=== PATIENT | male | born 1970 | race Caucasian/White ===

== ENCOUNTER 2019-10-27 17:09 | Observation (INO) | payer OTHER ==
[2019-10-27 17:30] LABS: Glucose,Whole Blood 245 mg/dL (75-99)
[2019-10-27] MEDS ORDERED: SODIUM CHLORIDE 0.9% 1,000 ML IV ONE ×2 (17:34→19:22)
--- NOTE | 2019-10-27 17:37 | ED ---
General Adult HPI - General Chief complaint: Recheck/Abnormal Lab/Rx Stated complaint: DKA Time Seen by Provider: 10/27/19 17:09 Source: patient, EMS, RN notes reviewed, old records reviewed Mode of arrival: EMS Limitations: no limitations - History of Present Illness Initial comments: This is a 49-year-old male who presents emergency Department from [facility]. Patient arrived there at [place] was diagnosed with DKA alcohol intoxication with alcohol 459. Patient also had fallen and broken his clavicle. Patient is CT of his head neck and it was negative according to the physician at [place]. Patient upon arrival he is complaining of some clavicle pain aside from that has no other complaints at this time. Patient admits that he was drinking heavily earlier. Patient denies any chest pain or palpitations or difficulty breathing. Patient denies any head or neck pain patient denies any abdominal pain. - Related Data Allergies Allergy/AdvReac Type Severity Reaction Status Date / Time No Known Allergies Allergy Verified 10/27/19 19:08 Review of Systems ROS Statement: Those systems with pertinent positive or pertinent negative responses have been documented in the HPI. ROS Other: All systems not noted in ROS Statement are negative. Past Medical History Past Medical History: Diabetes Mellitus History of Any Multi-Drug Resistant Organisms: None Reported Past Surgical History: No Surgical Hx Reported Past Alcohol Use History: Abuse, Daily General Exam - General Exam Comments Initial Comments: GENERAL: Patient is well-developed and well-nourished. Patient is nontoxic and well- hydrated and is in mild distress. ENT: Neck is soft and supple. No significant lymphadenopathy is noted. Oropharynx is clear. Moist mucous membranes. Neck has full range of motion without eliciting any pain. EYES: The sclera were anicteric and conjunctiva were pink and moist. Extraocular movements were intact and pupils were equal round and reactive to light. Eyelids were unremarkable. PULMONARY: Unlabored respirations. Good breath sounds bilaterally. No audible rales rhonchi or wheezing was noted. CARDIOVASCULAR: There is a regular rate and rhythm without any murmurs gallops or rubs. ABDOMEN: Soft and nontender with normal bowel sounds. SKIN: Patient has some ecchymosis above the left clavicle. NEUROLOGIC: Patient is alert and oriented x3. Cranial nerves II through XII are grossly intact. Motor and sensory are also intact. Normal speech, volume and content. Symmetrical smile. MUSCULOSKELETAL: Normal extremities with adequate strength and full range of motion. Patient has a tender left clavicle LYMPHATICS: No significant lymphadenopathy is noted PSYCHIATRIC: Normal psychiatric evaluation. Limitations: no limitations Course Vital Signs 10/27/19 10/27/19 17:11 18:27 Temperature 97.8 F Pulse Rate 68 76 Respiratory 16 16 Rate Blood Pressure 119/81 144/86 O2 Sat by Pulse 100 100 Oximetry Medical Decision Making - Lab Data Result diagrams: 10/27/19 17:48 10/27/19 17:48 Lab Results 10/27/19 10/27/19 10/27/19 Range/Units 17:19 17:48 17:48 WBC 8.5 (3.8-10.6) k/uL RBC 3.74 L (4.30-5.90) m/uL Hgb 11.9 L (13.0-17.5) gm/dL Hct 36.5 L (39.0-53.0) % MCV 97.8 (80.0-100.0) fL MCH 31.9 (25.0-35.0) pg MCHC 32.6 (31.0-37.0) g/dL RDW 14.3 (11.5-15.5) % Plt Count 142 L (150-450) k/uL Neutrophils % 66 % Lymphocytes % 24 % Monocytes % 7 % Eosinophils % 0 % Basophils % 0 % Neutrophils # 5.6 (1.3-7.7) k/uL Lymphocytes # 2.0 (1.0-4.8) k/uL Monocytes # 0.6 (0-1.0) k/uL Eosinophils # 0.0 (0-0.7) k/uL Basophils # 0.0 (0-0.2) k/uL Sodium 134 L (137-145) mmol/L Potassium 4.9 (3.5-5.1) mmol/L Chloride 94 L (98-107) mmol/L Carbon Dioxide 20 L (22-30) mmol/L Anion Gap 20 mmol/L BUN 7 L (9-20) mg/dL Creatinine 0.25 L (0.66-1.25) mg/dL Est GFR (CKD-EPI)AfAm >90 (>60 ml/min/1.73 sqM) Est GFR (CKD-EPI)NonAf >90 (>60 ml/min/1.73 sqM) Glucose 214 H (74-99) mg/dL POC Glucose (mg/dL) 245 H (75-99) mg/dL POC Glu Bridge Attacher ID Jolie Aragon Plasma Lactic Acid Miguelito (0.7-2.0) mmol/L Calcium 8.0 L (8.4-10.2) mg/dL Total Bilirubin 1.7 H (0.2-1.3) mg/dL AST 108 H (17-59) U/L ALT 29 (4-49) U/L Alkaline Phosphatase 304 H (38-126) U/L Total Protein 6.8 (6.3-8.2) g/dL Albumin 3.7 (3.5-5.0) g/dL Serum Alcohol 236 H* mg/dL Acetone, Qual Negative (Negative) 10/27/19 10/27/19 Range/Units 17:48 19:03 WBC (3.8-10.6) k/uL RBC (4.30-5.90) m/uL Hgb (13.0-17.5) gm/dL Hct (39.0-53.0) % MCV (80.0-100.0) fL MCH (25.0-35.0) pg MCHC (31.0-37.0) g/dL RDW (11.5-15.5) % Plt Count (150-450) k/uL Neutrophils % % Lymphocytes % % Monocytes % % Eosinophils % % Basophils % % Neutrophils # (1.3-7.7) k/uL Lymphocytes # (1.0-4.8) k/uL Monocytes # (0-1.0) k/uL Eosinophils # (0-0.7) k/uL Basophils # (0-0.2) k/uL Sodium (137-145) mmol/L Potassium (3.5-5.1) mmol/L Chloride (98-107) mmol/L Carbon Dioxide (22-30) mmol/L Anion Gap mmol/L BUN (9-20) mg/dL Creatinine (0.66-1.25) mg/dL Est GFR (CKD-EPI)AfAm (>60 ml/min/1.73 sqM) Est GFR (CKD-EPI)NonAf (>60 ml/min/1.73 sqM) Glucose (74-99) mg/dL POC Glucose (mg/dL) 409 H (75-99) mg/dL POC Glu Bridge Attacher ID Jolie Aragon Plasma Lactic Acid Miguelito 4.2 H* (0.7-2.0) mmol/L Calcium (8.4-10.2) mg/dL Total Bilirubin (0.2-1.3) mg/dL AST (17-59) U/L ALT (4-49) U/L Alkaline Phosphatase (38-126) U/L Total Protein (6.3-8.2) g/dL Albumin (3.5-5.0) g/dL Serum Alcohol mg/dL Acetone, Qual (Negative) Disposition Clinical Impression: Alcohol intoxication, Lactic acidosis, Clavicle fracture Disposition: ADMITTED IP TO THIS HOSP Referrals: None,Stated [Primary Care Provider] - 1-2 days Time of Disposition: 19:06
[2019-10-27 18:10] LABS: Basophils % (A) 0 %; Eosinophils % (A) 0 %; HCT 36.5 % (39.0-53.0); HGB 11.9 gm/dL (13.0-17.5); Lymphocytes % (A) 24 %; MCH 31.9 pg (25.0-35.0); MCHC 32.6 g/dL (31.0-37.0); MCV 97.8 fL (80.0-100.0); Mean Platelet Volume 8.7; Monocytes # (A) 0.6 k/uL (0-1.0); Monocytes % (A) 7 %; Neutrophils # (A) 5.6 k/uL (1.3-7.7); Neutrophils % (A) 66 %; Platelet Count 142 k/uL (150-450); RBC 3.74 m/uL (4.30-5.90); RDW 14.3 % (11.5-15.5); WBC 8.5 k/uL (3.8-10.6)
[2019-10-27 18:21] LABS: ALT 29 U/L (4-49); AST 108 U/L (17-59); African American GFR (CKD) >90 (>60 ml/min/1.73 sqM); Albumin 3.7 g/dL (3.5-5.0); Alkaline Phosphatase 304 U/L (38-126); Anion Gap 20 mmol/L; Blood Urea Nitrogen 7 mg/dL (9-20); Carbon Dioxide 20 mmol/L (22-30); Chloride 94 mmol/L (98-107); Glucose 214 mg/dL (74-99); Non-African American GFR(CKD) >90 (>60 ml/min/1.73 sqM); Sodium 134 mmol/L (137-145); Total Bilirubin 1.7 mg/dL (0.2-1.3); Total Protein 6.8 g/dL (6.3-8.2)
[2019-10-27 18:29] LABS: Alcohol 236 mg/dL; Potassium 4.9 mmol/L (3.5-5.1)
[2019-10-27 19:11] LABS: Glucose,Whole Blood 409 mg/dL (75-99)
[2019-10-27] MEDS ORDERED: THIAMINE 100 MG/ML 2 ML VIAL IM STA (19:30)
[2019-10-27] MEDS ORDERED: LORazepam 2 MG/ML INJ IV PRN ×2 (19:30)
[2019-10-27] MEDS: LORazepam 2 MG/ML INJ IV PRN (19:58)
[2019-10-27 20:31] LABS: Glucose,Whole Blood 309 mg/dL (75-99)
[2019-10-27] MEDS ORDERED: ONDANSETRON 4 MG/2 ML VIAL IVP PRN (21:30)
[2019-10-27] MEDS ORDERED: METOCLOPRAMIDE 5 MG/ML 2 ML VIAL IVP PRN (21:34)
[2019-10-27] MEDS ORDERED: SODIUM CHLORIDE 0.9% 2,000 ML IV ONE (22:20)
--- NOTE | 2019-10-27 22:29 | P.HPIM ---
History of Present Illness H&P Date: 10/27/19 Chief Complaint: alcohol intoxication and hyperglycemia 49 year old male with DM , and alcohol abuse, history of stroke with residual left sided weakness patient transferred to our facility from [facility] due to alcohol intoxication, hyperglycemia, and clavicle fracture. patient interviewed in the ER, he is intoxicated, but alert, reports that he drinks at least a fifth every day , denies any history of alcohol withdrawal seizures, he reports falling accidentally but does not recall the exact circumstances of the accident, however, denies passing out or head injury. at [facility] , CT of head and neck reported to be negative for any acute abnormalities. he mentions falling on his left shouler, he was found to have left clavicle fracture, which currently causing a lot of pain . he was also found to have elevated blood sugar. he claims to be compliant with his medications. he adds, that he is currently living with a friend while looking for a place. patient otherwise mark any other medical problems. he denies any complaints like GI bleeding, chest pain or trouble breathing. In our ED , he had a fresh set of blood work that showed mild anemia, lactic acidosis, negative to acetone, elevated alcohol level, and acute alcoholic hep atitis. Review of Systems Pertinent positives as noted in HPI. All other systems were reviewed and are negative Past Medical History Past Medical History: CVA/TIA, Diabetes Mellitus History of Any Multi-Drug Resistant Organisms: None Reported Past Surgical History: No Surgical Hx Reported Past Alcohol Use History: Abuse, Daily - Past Family History family Family Medical History: Unable to Obtain Medications and Allergies Allergies Allergy/AdvReac Type Severity Reaction Status Date / Time ondansetron [From Zofran] Allergy Rash/Hives Verified 10/27/19 19:52 Physical Exam Vitals: Vital Signs Temp Pulse Resp BP Pulse Ox 10/27/19 18:27 76 16 144/86 100 10/27/19 17:11 97.8 F 68 16 119/81 100 Intake and Output 10/27/19 10/27/19 10/27/19 06:59 14:59 22:59 Other: Weight 60.781 kg Constitutional: No acute distress, intoxicated, but alert Eyes: Anicteric sclerae, moist conjunctiva, Pupils equal round reactive to light ENMT: NC/AT Oropharynx clear, no erythema, or exudates Neck: Supple, FROM, no masses, or JVD No carotid bruits No thyromegaly Lungs: Clear to auscultation Clear to percussion Normal respiratory effort, no accessory muscle use Cardiovascular: Heart regular in rate and rhythm, No murmurs, gallops, or rubs No peripheral edema Abdominal: Soft Nontender, no guarding, rebound or rigidity Abdomen moving with respiration Normoactive bowel sounds No hepatomegaly, No splenomegaly No palpable mass No abdominal wall hernia noted Skin: Normal temperature, tone, texture, turgor No induration No subcutaneous nodules No rash, lesions No ulcers Extremities: No digital cyanosis No clubbing Pedal pulses intact and symmetrical Radial pulses intact and symmetrical No calf tenderness Psychiatric: intoxicat BUT ALERT Neuro Muscles Strength 4/5 in all 4 extremities Sensation to light touch grossly present throughout Cranial nerves II-XII grossly intact No focal sensory deficits Lymphatics: no palpable cervical or supraclavicular , or inguinal lymph nodes Results CBC & Chem 7: 10/27/19 17:48 10/27/19 17:48 Labs: Abnormal Lab Results - Last 24 Hours (Table) 10/27/19 10/27/19 10/27/19 Range/Units 17:19 17:48 17:48 RBC 3.74 L (4.30-5.90) m/uL Hgb 11.9 L (13.0-17.5) gm/dL Hct 36.5 L (39.0-53.0) % Plt Count 142 L (150-450) k/uL Sodium 134 L (137-145) mmol/L Chloride 94 L (98-107) mmol/L Carbon Dioxide 20 L (22-30) mmol/L BUN 7 L (9-20) mg/dL Creatinine 0.25 L (0.66-1.25) mg/dL Glucose 214 H (74-99) mg/dL POC Glucose (mg/dL) 245 H (75-99) mg/dL Plasma Lactic Acid Miguelito (0.7-2.0) mmol/L Calcium 8.0 L (8.4-10.2) mg/dL Total Bilirubin 1.7 H (0.2-1.3) mg/dL AST 108 H (17-59) U/L Alkaline Phosphatase 304 H (38-126) U/L Serum Alcohol 236 H* mg/dL 10/27/19 10/27/19 Range/Units 17:48 19:03 RBC (4.30-5.90) m/uL Hgb (13.0-17.5) gm/dL Hct (39.0-53.0) % Plt Count (150-450) k/uL Sodium (137-145) mmol/L Chloride (98-107) mmol/L Carbon Dioxide (22-30) mmol/L BUN (9-20) mg/dL Creatinine (0.66-1.25) mg/dL Glucose (74-99) mg/dL POC Glucose (mg/dL) 409 H (75-99) mg/dL Plasma Lactic Acid Miguelito 4.2 H* (0.7-2.0) mmol/L Calcium (8.4-10.2) mg/dL Total Bilirubin (0.2-1.3) mg/dL AST (17-59) U/L Alkaline Phosphatase (38-126) U/L Serum Alcohol mg/dL Assessment and Plan Assessment: acute moderate to sever alcohol intoxication and use disorder lactic acidosis hyperglycemia acute alcoholic hepatitis history of stroke fracture clavicle aggressive IV FLUID HYDRATION NO IDEntified source of infection at this time follow up lactic acid follow up liver enzymes insulin sliding scale and levemir benzo for potential alcohol withdrawal per CIWA SCALE thiamin supportive care fall precautions seizure precautions orthopedic evaluation pain control arm sling DVT PPX HEPARIN SC TID CODE STATUS:full code Anticipated length of stay more than [address]: home A total of 75 minutes was spent on the care of this complex patient more than 50% of the time was spent in counseling and care coordination.
[2019-10-27] MEDS: INSULIN DETEMIR (LEVEMIR) 100 UNIT/ML SYR SQ SCH (22:47)
[2019-10-27] MEDS: KETOROLAC 30 MG/ML 1 ML VIAL IVP SCH (23:05)
[2019-10-27] MEDS: HEPARIN SODIUM,PORCINE 5,000 UNIT/ML 1 ML VIAL SQ SCH (23:06)
[2019-10-27] MEDS ORDERED: HYDROmorphone 0.5 MG/0.5 ML SYRINGE IVP PRN (23:30)
[2019-10-28] MEDS ORDERED: HYDROcodone/APAP 5-325MG 1 EACH TAB PO STA (00:43)
[2019-10-28] MEDS: HYDROmorphone 0.5 MG/0.5 ML SYRINGE IVP PRN ×6 (00:53→21:43)
[2019-10-28] MEDS: LORazepam 2 MG/ML INJ IV PRN ×3 (02:35→20:07)
[2019-10-28 04:07] LABS: African American GFR (CKD) >90 (>60 ml/min/1.73 sqM); Anion Gap 9 mmol/L; Blood Urea Nitrogen 6 mg/dL (9-20); Calcium 7.4 mg/dL (8.4-10.2); Carbon Dioxide 25 mmol/L (22-30); Chloride 95 mmol/L (98-107); Glucose 116 mg/dL (74-99); Non-African American GFR(CKD) >90 (>60 ml/min/1.73 sqM); Potassium 3.3 mmol/L (3.5-5.1); Sodium 129 mmol/L (137-145)
[2019-10-28] MEDS ORDERED: SODIUM CHLORIDE 0.9% 1,000 ML IV ONE (04:13)
[2019-10-28 04:27] LABS: Basophils % (A) 0 %; Eosinophils # (A) 0.1 k/uL (0-0.7); Eosinophils % (A) 1 %; HCT 29.2 % (39.0-53.0); HGB 10.2 gm/dL (13.0-17.5); Lymphocytes # (A) 1.5 k/uL (1.0-4.8); Lymphocytes % (A) 25 %; MCH 33.5 pg (25.0-35.0); MCHC 34.8 g/dL (31.0-37.0); MCV 96.4 fL (80.0-100.0); Mean Platelet Volume 8.4; Monocytes # (A) 0.4 k/uL (0-1.0); Monocytes % (A) 6 %; Neutrophils % (A) 66 %; RBC 3.03 m/uL (4.30-5.90); WBC 6.1 k/uL (3.8-10.6)
[2019-10-28 04:42] LABS: Platelet Count 89 k/uL (150-450)
[2019-10-28] MEDS: KETOROLAC 30 MG/ML 1 ML VIAL IVP SCH ×3 (05:33→18:10)
[2019-10-28] MEDS: THIAMINE 100 MG TAB PO SCH ×2 (07:19→16:57)
[2019-10-28] MEDS: HEPARIN SODIUM,PORCINE 5,000 UNIT/ML 1 ML VIAL SQ SCH (07:19)
[2019-10-28 07:20] LABS: Glucose,Whole Blood 82 mg/dL (75-99)
[2019-10-28] MEDS: INSULIN ASPART (NovoLOG) 100 UNIT/ML VIAL SQ SCH ×4 (07:38→21:18)
--- NOTE | 2019-10-28 09:32 | P.CNOR ---
History of Present Illness - [facility] Consult date: 10/28/19 Consult reason: fracture History of present illness: Patient is a 49-year-old male who was transferred to our hospital with regards to her diabetic ketoacidosis, severe alcohol intoxication medication and recent fall resulting in a left clavicle fracture. Patient was evaluated on the medical floor today, he's resting in his hospital bed. Patient seems intoxicated still at this time. He admits to falling in the last day or 2 on of the left side injuring the shoulder. He denies any previous surgery involving that extremity. Patient has known alcohol abuse disorder. He has no other orthopedic complaints at this time. Review of Systems Constitutional: Reports as per [facility] Past Medical History Past Medical History: CVA/TIA, Diabetes Mellitus History of Any Multi-Drug Resistant Organisms: None Reported Past Surgical History: No Surgical Hx Reported Past Anesthesia/Blood Transfusion Reactions: No Reported Reaction Past Alcohol Use History: Abuse, Daily - Past Family History family Family Medical History: Unable to Obtain Medications and Allergies Allergies Allergy/AdvReac Type Severity Reaction Status Date / Time ondansetron [From Zofran] Allergy Rash/Hives Verified 10/27/19 19:52 Physical Examination Left upper extremity: No open lesions or sores are visualized, there is some ecchymosis on the lateral posterior aspect of the shoulder Tenderness with palpation along the distal clavicle Range of motion of shoulder was not assessed due to pain Range of motion of the elbow, hand and wrist are intact, no significant strength defect appreciated Sensory exam to light touch throughout the extremity is intact, radial pulses 2+ Results - Labs Labs: Abnormal Lab Results - Last 24 Hours (Table) 10/27/19 10/27/19 10/27/19 Range/Units 17:19 17:48 17:48 RBC 3.74 L (4.30-5.90) m/uL Hgb 11.9 L (13.0-17.5) gm/dL Hct 36.5 L (39.0-53.0) % Plt Count 142 L (150-450) k/uL Sodium 134 L (137-145) mmol/L Potassium (3.5-5.1) mmol/L Chloride 94 L (98-107) mmol/L Carbon Dioxide 20 L (22-30) mmol/L BUN 7 L (9-20) mg/dL Creatinine 0.25 L (0.66-1.25) mg/dL Glucose 214 H (74-99) mg/dL POC Glucose (mg/dL) 245 H (75-99) mg/dL Plasma Lactic Acid Miguelito (0.7-2.0) mmol/L Calcium 8.0 L (8.4-10.2) mg/dL Total Bilirubin 1.7 H (0.2-1.3) mg/dL AST 108 H (17-59) U/L Alkaline Phosphatase 304 H (38-126) U/L Serum Alcohol 236 H* mg/dL 10/27/19 10/27/19 10/27/19 Range/Units 17:48 19:03 20:29 RBC (4.30-5.90) m/uL Hgb (13.0-17.5) gm/dL Hct (39.0-53.0) % Plt Count (150-450) k/uL Sodium (137-145) mmol/L Potassium (3.5-5.1) mmol/L Chloride (98-107) mmol/L Carbon Dioxide (22-30) mmol/L BUN (9-20) mg/dL Creatinine (0.66-1.25) mg/dL Glucose (74-99) mg/dL POC Glucose (mg/dL) 409 H 309 H (75-99) mg/dL Plasma Lactic Acid Miguelito 4.2 H* (0.7-2.0) mmol/L Calcium (8.4-10.2) mg/dL Total Bilirubin (0.2-1.3) mg/dL AST (17-59) U/L Alkaline Phosphatase (38-126) U/L Serum Alcohol mg/dL 10/27/19 10/28/19 10/28/19 Range/Units 21:00 00:11 03:29 RBC 3.03 L (4.30-5.90) m/uL Hgb 10.2 L (13.0-17.5) gm/dL Hct 29.2 L (39.0-53.0) % Plt Count 89 L (150-450) k/uL Sodium (137-145) mmol/L Potassium (3.5-5.1) mmol/L Chloride (98-107) mmol/L Carbon Dioxide (22-30) mmol/L BUN (9-20) mg/dL Creatinine (0.66-1.25) mg/dL Glucose (74-99) mg/dL POC Glucose (mg/dL) (75-99) mg/dL Plasma Lactic Acid Miguelito 4.8 H* 2.6 H* (0.7-2.0) mmol/L Calcium (8.4-10.2) mg/dL Total Bilirubin (0.2-1.3) mg/dL AST (17-59) U/L Alkaline Phosphatase (38-126) U/L Serum Alcohol mg/dL 10/28/19 Range/Units 03:29 RBC (4.30-5.90) m/uL Hgb (13.0-17.5) gm/dL Hct (39.0-53.0) % Plt Count (150-450) k/uL Sodium 129 L (137-145) mmol/L Potassium 3.3 L (3.5-5.1) mmol/L Chloride 95 L (98-107) mmol/L Carbon Dioxide (22-30) mmol/L BUN 6 L (9-20) mg/dL Creatinine 0.20 L (0.66-1.25) mg/dL Glucose 116 H (74-99) mg/dL POC Glucose (mg/dL) (75-99) mg/dL Plasma Lactic Acid Miguelito (0.7-2.0) mmol/L Calcium 7.4 L (8.4-10.2) mg/dL Total Bilirubin (0.2-1.3) mg/dL AST (17-59) U/L Alkaline Phosphatase (38-126) U/L Serum Alcohol mg/dL H & H 10/27/19 10/28/19 Range/Units 17:48 03:29 Hgb 11.9 L 10.2 L (13.0-17.5) gm/dL Hct 36.5 L 29.2 L (39.0-53.0) % Result Diagrams: 10/28/19 03:29 10/28/19 03:29 - Diagnostic results Shoulder x-ray: report reviewed, image reviewed (X-rays demonstrate minimally displaced left distal clavicle fracture, No other osseous abnormality is appreciated) Assessment and Plan Assessment: Minimally displaced left distal clavicle fracture Status post recent fall Other medical comorbidities Plan: I was able to discuss the case, including with physical exam findings and imaging studies my attending Dr. Lam. No orthopedic surgical intervention recommended at this time. Conservative management to include icing of the shoulder, use of an arm sling at all times Recommend [id number] Tylenol/Motrin as needed Activity level prescription as discussed for the left arm Other medical specialty recommendations GI and DVT prophylaxis per primary medical service Plan for follow-up in the outpatient setting with Dr. Lam next 2-3 weeks fracture evaluation Thank you for this consult, we'll be available for any further questions Time with Patient: Less than 30
[2019-10-28] MEDS: POTASSIUM CHLORIDE ER 20 MEQ TAB.ER PO SCH ×2 (10:29→11:58)
[2019-10-28 11:42] LABS: Glucose,Whole Blood 172 mg/dL (75-99)
--- NOTE | 2019-10-28 14:53 | P.PN ---
Subjective Progress Note Date: 10/28/19 The patient is a 49-year-old male with a PMH of type II DM, EtOH abuse, history of CVA with residual left-sided weakness who was transferred to the ED from [facility] for acute alcohol intoxication with hyperglycemia and a left clavicular fracture. The patient had reported drinking a fifth of vodka every day and had reported falling on his left shoulder 2 days ago. Imaging performed at [facility] had revealed a CT head and cervical spine to be unremarkable with a x-ray showing a left clavicular fracture. The patient was admitted for alcohol intoxication and fracture. Orthopedic surgery evaluated the patient and recommended no surgical intervention at this time with conservative management only. Reported improvement in his pain, currently at a 4 out of 10. Patient was seen and evaluated at the bedside on 10/27. Reported feeling shaky though denied any additional complaints. Right chest pain, shortness of breath, fever, chills, or cough. Objective - Vital Signs Vital signs: Vital Signs Temp 98.6 F 10/28/19 07:00 Pulse 116 H 10/28/19 08:34 Resp 19 10/28/19 07:00 BP 121/62 10/28/19 07:00 Pulse Ox 91 L 10/28/19 07:00 Intake & Output 10/27/19 10/28/19 10/28/19 18:59 06:59 18:59 Output Total 1000 1200 Balance -1000 -1200 Weight 60.781 kg 60.781 kg Output: Urine 1000 1200 Other: # Voids 1 - Exam General: Disheveled male, somewhat shaky, appears stated age, normal weight HEENT: NC/AT, anicteric sclerae, moist conjunctiva, no lid-lag, PERRLA Cardiovascular: S1/S2 wnl, no murmurs, rubs, or gallops Lungs: Clear to auscultation, normal respiratory effort, no accessory muscle use Abdominal: Soft, non-tender, non-distended, no guarding, rebound, or rigidity Skin: Warm, dry Extremities: No edema or contractures Psychiatric: Alert and oriented to person, place and time, appropriate affect Neuro: CN II-XII grossly intact, Strength 4/5 in all 4 extremities, Speech inta ct, Sensation to light touch grossly intact throughout, mild outstretched hand tremor some fine tongue fasciculations - Labs CBC & Chem 7: 10/28/19 03:29 10/28/19 03:29 Labs: Abnormal Lab Results - Last 24 Hours (Table) 10/27/19 10/27/19 10/27/19 Range/Units 17:19 17:48 17:48 RBC 3.74 L (4.30-5.90) m/uL Hgb 11.9 L (13.0-17.5) gm/dL Hct 36.5 L (39.0-53.0) % Plt Count 142 L (150-450) k/uL Sodium 134 L (137-145) mmol/L Potassium (3.5-5.1) mmol/L Chloride 94 L (98-107) mmol/L Carbon Dioxide 20 L (22-30) mmol/L BUN 7 L (9-20) mg/dL Creatinine 0.25 L (0.66-1.25) mg/dL Glucose 214 H (74-99) mg/dL POC Glucose (mg/dL) 245 H (75-99) mg/dL Plasma Lactic Acid Miguelito (0.7-2.0) mmol/L Calcium 8.0 L (8.4-10.2) mg/dL Total Bilirubin 1.7 H (0.2-1.3) mg/dL AST 108 H (17-59) U/L Alkaline Phosphatase 304 H (38-126) U/L Serum Alcohol 236 H* mg/dL 10/27/19 10/27/19 10/27/19 Range/Units 17:48 19:03 20:29 RBC (4.30-5.90) m/uL Hgb (13.0-17.5) gm/dL Hct (39.0-53.0) % Plt Count (150-450) k/uL Sodium (137-145) mmol/L Potassium (3.5-5.1) mmol/L Chloride (98-107) mmol/L Carbon Dioxide (22-30) mmol/L BUN (9-20) mg/dL Creatinine (0.66-1.25) mg/dL Glucose (74-99) mg/dL POC Glucose (mg/dL) 409 H 309 H (75-99) mg/dL Plasma Lactic Acid Miguelito 4.2 H* (0.7-2.0) mmol/L Calcium (8.4-10.2) mg/dL Total Bilirubin (0.2-1.3) mg/dL AST (17-59) U/L Alkaline Phosphatase (38-126) U/L Serum Alcohol mg/dL 10/27/19 10/28/19 10/28/19 Range/Units 21:00 00:11 03:29 RBC 3.03 L (4.30-5.90) m/uL Hgb 10.2 L (13.0-17.5) gm/dL Hct 29.2 L (39.0-53.0) % Plt Count 89 L (150-450) k/uL Sodium (137-145) mmol/L Potassium (3.5-5.1) mmol/L Chloride (98-107) mmol/L Carbon Dioxide (22-30) mmol/L BUN (9-20) mg/dL Creatinine (0.66-1.25) mg/dL Glucose (74-99) mg/dL POC Glucose (mg/dL) (75-99) mg/dL Plasma Lactic Acid Miguelito 4.8 H* 2.6 H* (0.7-2.0) mmol/L Calcium (8.4-10.2) mg/dL Total Bilirubin (0.2-1.3) mg/dL AST (17-59) U/L Alkaline Phosphatase (38-126) U/L Serum Alcohol mg/dL 10/28/19 10/28/19 Range/Units 03:29 11:40 RBC (4.30-5.90) m/uL Hgb (13.0-17.5) gm/dL Hct (39.0-53.0) % Plt Count (150-450) k/uL Sodium 129 L (137-145) mmol/L Potassium 3.3 L (3.5-5.1) mmol/L Chloride 95 L (98-107) mmol/L Carbon Dioxide (22-30) mmol/L BUN 6 L (9-20) mg/dL Creatinine 0.20 L (0.66-1.25) mg/dL Glucose 116 H (74-99) mg/dL POC Glucose (mg/dL) 172 H (75-99) mg/dL Plasma Lactic Acid Miguelito (0.7-2.0) mmol/L Calcium 7.4 L (8.4-10.2) mg/dL Total Bilirubin (0.2-1.3) mg/dL AST (17-59) U/L Alkaline Phosphatase (38-126) U/L Serum Alcohol mg/dL Assessment and Plan Plan: Alcohol intoxication with impending withdrawal -Continue with CIWA protocol -Continue thiamine, folic acid, multivitamin -Fall, aspiration, seizure precautions -Continue with IV fluids -Monitor electrolytes and replace accordingly Lactic acidosis, resolved Clavicular fracture -As per orthopedic surgery -Pain management -Conservative management Hypokalemia -Replace and monitor Type II DM with hyperglycemia -Check A1c -Lispro insulin sliding scale blood glucose monitoring Hypochloremic hyponatremia -Likely secondary to poor oral intake in setting of EtOH abuse -Continue with IV fluids and monitor CBC Thrombocytopenia -Likely due to EtOH abuse -Monitor for now DVT prophylaxis -IPCDs Discussed with: Patient Anticipated discharge date: 1-2 day
[2019-10-28] MEDS ORDERED: POTASSIUM CHLORIDE ER 20 MEQ TAB.ER PO STA (14:54)
[2019-10-28] MEDS ORDERED: traMADol 50 MG TAB PO PRN (14:55)
[2019-10-28 16:49] LABS: Glucose,Whole Blood 129 mg/dL (75-99)
[2019-10-28] MEDS: HYDROcodone/APAP 7.5-325MG 1 EACH TAB PO PRN (19:22)
[2019-10-28 21:16] LABS: Glucose,Whole Blood 110 mg/dL (75-99)
[2019-10-29 00:21] LABS: Glucose,Whole Blood 105 mg/dL (75-99)
[2019-10-29] MEDS: INSULIN DETEMIR (LEVEMIR) 100 UNIT/ML SYR SQ SCH ×2 (00:35→21:14)
[2019-10-29] MEDS: KETOROLAC 30 MG/ML 1 ML VIAL IVP SCH ×5 (01:01→23:59)
[2019-10-29] MEDS: HYDROmorphone 0.5 MG/0.5 ML SYRINGE IVP PRN ×2 (04:28→07:33)
[2019-10-29 06:55] LABS: Glucose,Whole Blood 165 mg/dL (75-99)
[2019-10-29] MEDS: FOLIC ACID 1 MG TAB PO SCH (07:32)
[2019-10-29] MEDS: INSULIN ASPART (NovoLOG) 100 UNIT/ML VIAL SQ SCH ×4 (07:32→21:15)
[2019-10-29] MEDS: HYDROcodone/APAP 7.5-325MG 1 EACH TAB PO PRN ×3 (07:32→19:27)
[2019-10-29] MEDS: MULTIVITAMINS, THERA 1 EACH TAB PO SCH (07:32)
[2019-10-29] MEDS: THIAMINE 100 MG TAB PO SCH ×2 (07:32→17:24)
[2019-10-29 08:00] LABS: HCT 37.2 % (39.0-53.0); MCHC 32.3 g/dL (31.0-37.0); MCV 99.2 fL (80.0-100.0); Mean Platelet Volume 9.6; RBC 3.75 m/uL (4.30-5.90); RDW 13.8 % (11.5-15.5); WBC 7.2 k/uL (3.8-10.6)
[2019-10-29 08:01] LABS: Platelet Count 75 k/uL (150-450)
[2019-10-29 08:08] LABS: African American GFR (CKD) >90 (>60 ml/min/1.73 sqM); Anion Gap 18 mmol/L; Blood Urea Nitrogen 4 mg/dL (9-20); Calcium 8.3 mg/dL (8.4-10.2); Carbon Dioxide 19 mmol/L (22-30); Chloride 91 mmol/L (98-107); Glucose 136 mg/dL (74-99); Non-African American GFR(CKD) >90 (>60 ml/min/1.73 sqM); Potassium 4.5 mmol/L (3.5-5.1); Sodium 128 mmol/L (137-145)
[2019-10-29] MEDS: MORPHINE SULFATE 2 MG/ML SYRINGE IVP PRN ×4 (09:56→22:11)
[2019-10-29] MEDS: MAGNESIUM SULFATE-D5W PMX 1 GM in DEXTROSE/WATER 1 100ML.BAG IVPB SCH ×3 (09:57→12:05)
[2019-10-29] MEDS: LORazepam 2 MG/ML INJ IV PRN (11:21)
[2019-10-29 11:29] LABS: Glucose,Whole Blood 245 mg/dL (75-99)
[2019-10-29 11:38] LABS: Hemoglobin A1C 9.5 % (4.0-6.0)
--- NOTE | 2019-10-29 13:51 | P.PN ---
Subjective Progress Note Date: 10/29/19 The patient is a 49-year-old male with a PMH of type II DM, EtOH abuse, history of CVA with residual left-sided weakness who was transferred to the ED from [facility] for acute alcohol intoxication with hyperglycemia and a left clavicular fracture. The patient had reported drinking a fifth of vodka every day and had reported falling on his left shoulder 2 days ago. Imaging performed at [facility] had revealed a CT head and cervical spine to be unremarkable with a x-ray showing a left clavicular fracture. The patient was admitted for alcohol intoxication and fracture. Orthopedic surgery evaluated the patient and recommended no surgical intervention at this time with conservative management only. Patient was seen and evaluated at the bedside on 10/28. He reported continued significant left shoulder pain, currently 8 out of 10. He also reported feeling shaky and weak. Denied any additional complaints. Denied fever, chills, chest pain, shortness of breath, nausea, vomiting. Objective - Vital Signs Vital signs: Vital Signs Temp 99.2 F 10/29/19 07:00 Pulse 109 H 10/29/19 07:00 Resp 19 10/29/19 07:00 BP 121/84 10/29/19 07:00 Pulse Ox 95 10/29/19 07:00 Intake & Output 10/28/19 10/29/19 10/29/19 18:59 06:59 18:59 Output Total 2800 1900 Balance -2800 -1900 Output: Urine 2800 1900 Other: Voiding Method Urinal Diaper - Exam General: Disheveled male, mildly tremulous, appears stated age, normal weight HEENT: NC/AT, anicteric sclerae, moist conjunctiva, no lid-lag, PERRLA Cardiovascular: S1/S2 wnl, no murmurs, rubs, or gallops Lungs: Clear to auscultation, normal respiratory effort, no accessory muscle use Abdominal: Soft, non-tender, non-distended, no guarding, rebound, or rigidity Skin: Warm, dry Extremities: No edema or contractures Psychiatric: Alert and oriented to person, place and time, appropriate affect Neuro: CN II-XII grossly intact, Strength 4/5 in all 4 extremities, Speech intact, Sensation to light touch grossly intact throughout, mild outstretched hand tremor some fine tongue fasciculations - Labs CBC & Chem 7: 10/29/19 06:36 10/29/19 06:36 Labs: Abnormal Lab Results - Last 24 Hours (Table) 10/28/19 10/28/19 10/28/19 Range/Units 03:29 16:46 21:15 RBC (4.30-5.90) m/uL Hgb (13.0-17.5) gm/dL Hct (39.0-53.0) % Plt Count (150-450) k/uL Sodium (137-145) mmol/L Chloride (98-107) mmol/L Carbon Dioxide (22-30) mmol/L BUN (9-20) mg/dL Creatinine (0.66-1.25) mg/dL Glucose (74-99) mg/dL POC Glucose (mg/dL) 129 H 110 H (75-99) mg/dL Hemoglobin A1c 9.5 H (4.0-6.0) % Calcium (8.4-10.2) mg/dL Magnesium (1.6-2.3) mg/dL 10/29/19 10/29/19 10/29/19 Range/Units 00:16 06:36 06:36 RBC 3.75 L (4.30-5.90) m/uL Hgb 12.0 L (13.0-17.5) gm/dL Hct 37.2 L (39.0-53.0) % Plt Count 75 L (150-450) k/uL Sodium 128 L (137-145) mmol/L Chloride 91 L (98-107) mmol/L Carbon Dioxide 19 L (22-30) mmol/L BUN 4 L (9-20) mg/dL Creatinine 0.21 L (0.66-1.25) mg/dL Glucose 136 H (74-99) mg/dL POC Glucose (mg/dL) 105 H (75-99) mg/dL Hemoglobin A1c (4.0-6.0) % Calcium 8.3 L (8.4-10.2) mg/dL Magnesium (1.6-2.3) mg/dL 10/29/19 10/29/19 10/29/19 Range/Units 06:36 06:44 11:28 RBC (4.30-5.90) m/uL Hgb (13.0-17.5) gm/dL Hct (39.0-53.0) % Plt Count (150-450) k/uL Sodium (137-145) mmol/L Chloride (98-107) mmol/L Carbon Dioxide (22-30) mmol/L BUN (9-20) mg/dL Creatinine (0.66-1.25) mg/dL Glucose (74-99) mg/dL POC Glucose (mg/dL) 165 H 245 H (75-99) mg/dL Hemoglobin A1c (4.0-6.0) % Calcium (8.4-10.2) mg/dL Magnesium 0.9 L* (1.6-2.3) mg/dL Assessment and Plan Plan: EtOH withdrawal -Continue with CIWA protocol -Continue thiamine, folic acid, multivitamin -Fall, aspiration, seizure precautions -Continue with IV fluids -Monitor electrolytes and replace accordingly Clavicular fracture -As per orthopedic surgery -Pain management -Conservative management Hypomagnesemia -Replace and monitor Lactic acidosis, resolved Type II DM with hyperglycemia -A1C 9.5 -Lispro insulin sliding scale blood glucose monitoring Hypochloremic hyponatremia -Likely secondary to poor oral intake in setting of EtOH abuse -Continue with IV fluids and monitor CBC Thrombocytopenia -Likely due to EtOH abuse -Monitor for now DVT prophylaxis -IPCDs Discussed with: Patient Anticipated discharge date: 1-2 day
[2019-10-29] MEDS: SODIUM CHLORIDE 0.9% 1,000 ML IV SCH ×2 (14:01→21:15)
[2019-10-29 16:22] LABS: Glucose,Whole Blood 78 mg/dL (75-99)
[2019-10-29 21:06] LABS: Glucose,Whole Blood 202 mg/dL (75-99)
[2019-10-30] MEDS: HYDROcodone/APAP 7.5-325MG 1 EACH TAB PO PRN ×4 (01:24→21:07)
[2019-10-30] MEDS: MORPHINE SULFATE 2 MG/ML SYRINGE IVP PRN ×6 (02:23→23:08)
[2019-10-30] MEDS: KETOROLAC 30 MG/ML 1 ML VIAL IVP SCH ×4 (05:19→23:56)
[2019-10-30] MEDS: SODIUM CHLORIDE 0.9% 1,000 ML IV SCH ×2 (05:20→13:35)
[2019-10-30 07:00] LABS: Glucose,Whole Blood 134 mg/dL (75-99)
[2019-10-30] MEDS: INSULIN ASPART (NovoLOG) 100 UNIT/ML VIAL SQ SCH ×4 (07:40→21:10)
[2019-10-30] MEDS: FOLIC ACID 1 MG TAB PO SCH (07:45)
[2019-10-30] MEDS: MULTIVITAMINS, THERA 1 EACH TAB PO SCH (07:45)
[2019-10-30] MEDS: THIAMINE 100 MG TAB PO SCH ×2 (07:45→17:54)
[2019-10-30 08:11] LABS: HCT 32.8 % (39.0-53.0); MCH 32.5 pg (25.0-35.0); MCHC 33.7 g/dL (31.0-37.0); MCV 96.5 fL (80.0-100.0); Mean Platelet Volume 9.6; RDW 14.1 % (11.5-15.5)
[2019-10-30 08:17] LABS: ALT 33 U/L (4-49); AST 131 U/L (17-59); African American GFR (CKD) >90 (>60 ml/min/1.73 sqM); Albumin 3.1 g/dL (3.5-5.0); Alkaline Phosphatase 482 U/L (38-126); Anion Gap 11 mmol/L; Blood Urea Nitrogen 3 mg/dL (9-20); Calcium 8.1 mg/dL (8.4-10.2); Carbon Dioxide 25 mmol/L (22-30); Chloride 91 mmol/L (98-107); Glucose 153 mg/dL (74-99); Magnesium 1.2 mg/dL (1.6-2.3); Non-African American GFR(CKD) >90 (>60 ml/min/1.73 sqM); Potassium 3.4 mmol/L (3.5-5.1); Sodium 127 mmol/L (137-145); Total Bilirubin 1.5 mg/dL (0.2-1.3); Total Protein 5.9 g/dL (6.3-8.2)
[2019-10-30 08:20] LABS: Platelet Count 86 k/uL (150-450)
[2019-10-30 11:59] LABS: Glucose,Whole Blood 277 mg/dL (75-99)
[2019-10-30] MEDS ORDERED: Potassium Replacement Protocol 1 EACH MISC MISCELLANE PRN (13:43)
--- NOTE | 2019-10-30 13:55 | CDI ---
Documentation Clarification Form Date: 10/30/2019 CDS: Anna Villegas, CCS, CCDS Admit Date: 10/29/2019 Patient Name: Chiquita Castillo Discharge Date: ATTENTION: The Clinical Documentation Specialists (CDI) and [facility] Coding Staff appreciate your assistance in clarifying documentation. Please respond to the clarification below the line at the bottom and electronically sign. The CDI & [facility] Coding staff will review the response and follow-up if needed. Please note: Queries are made part of the Legal Health Record. If you have any questions, please contact the author of this message via ITS. Dear Dr. Kale Downs or Dr. Kathi Garcia: Anemia is documented in the 10/26 History & Physical without further specificity. History/Risk Factors: DM II, History of previous CVA with residual weakness, Daily alcohol abuse. Clinical indicators: Transferred from [facility] on 10/26 with Acute Alcohol Intoxication & DKA. Per the History & Physical on 10/26: Alcohol Intoxication with Impending DTs, Alcohol Abuse, DM II. Hemoglobin: 10/26: 11.9. 10/27: 10.2*; 10/28: 12.0*; 10/29: 11.0* Hematocrit: 10/26: 36.5*; 10/27: 29.2*; 10/28: 37.2*; 10/29: 32.8* BMI: 20.4, Ht 5 ft 8 in. Wt 60.78 kg. Treatment: Aggressive IV fluid hydration: IV fluid bolus 1,000 mls @ 999/hr, IV fluid 1,000 mls @ 125/hr, IV Ativan, IM Vit B1, IV Reglan, IV dilaudid, Heparin sq, IV Toradol. In order to capture the severity of condition, please clarify the type of anemia and etiology if known:. Chronic blood loss anemia Drug induced anemia Nutritional anemia Anemia of Other Chronic Disease: please specify: Unable to determine Other, please specify (Last Form Revision: June 2019) dilutional MTDD
--- NOTE | 2019-10-30 13:55 | P.DS ---
Providers Date of admission: 10/29/19 15:33 Expected date of discharge: 10/30/19 Attending physician: Steve Marcelino MD Consults: 10/27/19 19:22 Consult Physician Urgent Consulting Provider: Jose Lam Consult Reason/Comments: Clavicle fracture Do you want consulting provider notified?: Yes Primary care physician: Stated None Hospital Course: The patient is a 49-year-old male with a PMH of type II DM, EtOH abuse, history of CVA with residual left-sided weakness who was transferred to the ED from [facility] for acute alcohol intoxication with hyperglycemia and a left clavicular fracture. The patient had reported drinking a fifth of vodka every day and had reported falling on his left shoulder 2 days ago. Imaging performed at [facility] had revealed a CT head and cervical spine to be unremarkable with a x-ray showing a left clavicular fracture. The patient was admitted for alcohol intoxication and fracture. Orthopedic surgery eval uated the patient and recommended no surgical intervention at this time with conservative management only. Patient was seen and examined. No acute events overnight. Patient reports uncontrollable pain in his left upper extremity. Pain is 8 out of 10 in severity. Requesting additional narcotic medication. Patient reports well- controlled symptoms of alcohol withdrawal. He denies any chest pain, shortness breath or palpitations. No nausea or vomiting. No fever or chills. General: [non toxic], [no distress], [appears at stated age] Derm: [warm], [dry] Head: [atraumatic], [normocephalic], [symmetric] Eyes: [EOMI], [no lid lag], [anicteric sclera] Mouth: [no lip lesion], [mucus membranes moist] Cardiovascular: [S1S2 reg], [tachycardic], [positive DP pulse bilateral], Lungs: [CTA bilateral], [no rhonchi, no rales] , [no accessory muscle use] Abdominal: [soft], [ nontender to palpation], [no guarding], [no appreciable organomegaly] Ext: [no gross muscle atrophy], [no edema], [no contractures], [left shoulder bruising with tenderness to palpation over the clavicle] Neuro: [no focal neuro deficits] Psych: [Alert], [oriented], [appropriate affect] Alcohol withdrawal Hypokalemia Hypomagnesemia Clavicular fracture Type 2 diabetes mellitus with hyperglycemia Hypochloremic hyponatremia Thrombocytopenia Resolved: Lactic acidosis Patient has received 1 mg of Ativan today. His withdrawal symptoms are under control. He will be continued on CIWA protocol and given Ativan as needed. Continue thiamine, folate acid and multivitamin. Discussed alcohol cessation in great length. His potassium of 3.4 will be replaced via protocol. His magnesium of 1.2 will be replaced via protocol. Orthopedic surgery has evaluated the patient and recommends conservative management. His yrilf-my-jowk glucose is 277. He is on insulin sliding scale and diabetic diet. Regular Accu-Cheks have been ordered along with hypoglycemic precautions. Patient has a low sodium of 127. This is likely related to alcohol abuse. Initially thought to be hypovolemic but his sodium has worsened with IVF. IVF will be discontinued. Plans to repeat BMP tomorrow morning. He does have a low platelet count of 86 thought to be related to alcohol abuse. We will continue to monitor this at this time. [Patient admitted for alcohol withdrawal and clavicular fracture. Cleared by orthopedic surgery. Discussed with social work regarding rehab placement. Insurance authorization pending. Likely DC in 1-2 days.] Patient Condition at Discharge: Stable Plan - Discharge Summary New Discharge Prescriptions: No Action diphenhydrAMINE [Benadryl] 50 mg PO DAILY Insulin Glargine,Hum.rec.anlog [Basaglar Kwikpen U-100] 50 unit SQ BID Atorvastatin [Lipitor] 10 mg PO HS metFORMIN HCL [Glucophage] 500 mg PO BID Omeprazole 20 mg PO BID Magnesium 250 mg PO DAILY Ergocalciferol [Vitamin D2] 50,000 unit PO Q7D Cyclobenzaprine [Flexeril] 10 mg PO BID Multivitamins, Thera [Multivitamin (formulary)] 1 tab PO DAILY Ketorolac [Toradol] 10 mg PO Q6HR PRN PRN Reason: Pain INSULIN LISPRO (humaLOG) [humaLOG] See Protocol SQ DIRECTED Folic Acid 1 mg PO DAILY Beclomethasone Dip 80 Mcg/Puff [Qvar 80 mcg] 1 puff INHALATION RT-BID Discharge Medication List Atorvastatin [Lipitor] 10 mg PO HS 10/29/19 [History] Beclomethasone Dip 80 Mcg/Puff [Qvar 80 mcg] 1 puff INHALATION RT-BID 10/29/19 [History] Cyclobenzaprine [Flexeril] 10 mg PO BID 10/29/19 [History] Ergocalciferol [Vitamin D2] 50,000 unit PO Q7D 10/29/19 [History] Folic Acid 1 mg PO DAILY 10/29/19 [History] INSULIN LISPRO (humaLOG) [humaLOG] See Protocol SQ DIRECTED 10/29/19 [Hist ory] Insulin Glargine,Hum.rec.anlog [Basaglar Kwikpen U-100] 50 unit SQ BID 10/29/19 [History] Ketorolac [Toradol] 10 mg PO Q6HR PRN 10/29/19 [History] Magnesium 250 mg PO DAILY 10/29/19 [History] Multivitamins, Thera [Multivitamin (formulary)] 1 tab PO DAILY 10/29/19 [History] Omeprazole 20 mg PO BID 10/29/19 [History] diphenhydrAMINE [Benadryl] 50 mg PO DAILY 10/29/19 [History] metFORMIN HCL [Glucophage] 500 mg PO BID 10/29/19 [History] Follow up Appointment(s)/Referral(s): Jose Lam DO [Doctor of Osteopathic Medicine] - 11/14/19 3:00 pm None,Stated [Primary Care Provider] - 1-2 days Activity/Diet/Wound Care/Special Instructions: Orthopedic discharge instructions: 1. Utilize arm sling at all times 2. Avoid excess use of left upper extremity 3. Plan for [facility] 2 weeks
[2019-10-30] MEDS: MAGNESIUM SULFATE-D5W PMX 1 GM in DEXTROSE/WATER 1 100ML.BAG IVPB SCH ×2 (14:20→17:54)
[2019-10-30] MEDS: PANTOPRAZOLE 40 MG TABLET PO SCH (14:20)
[2019-10-30 15:16] VITALS: BMI 20.3
[2019-10-30 16:58] LABS: Glucose,Whole Blood 215 mg/dL (75-99)
[2019-10-30 20:59] LABS: Glucose,Whole Blood 180 mg/dL (75-99)
[2019-10-30] MEDS: FLUTICASONE 110 MCG INHALER INHALATION SCH (20:59)
[2019-10-30] MEDS: ATORVASTATIN 10 MG TAB PO SCH (21:10)
[2019-10-30] MEDS: INSULIN DETEMIR (LEVEMIR) 100 UNIT/ML SYR SQ SCH (21:10)
[2019-10-31] MEDS: HYDROcodone/APAP 7.5-325MG 1 EACH TAB PO PRN ×2 (03:08→09:15)
[2019-10-31] MEDS: KETOROLAC 30 MG/ML 1 ML VIAL IVP SCH ×3 (06:07→17:12)
[2019-10-31 07:16] LABS: Glucose,Whole Blood 48 mg/dL (75-99)
[2019-10-31] MEDS: INSULIN ASPART (NovoLOG) 100 UNIT/ML VIAL SQ SCH ×4 (07:20→22:04)
[2019-10-31 07:21] LABS: Glucose,Whole Blood 81 mg/dL (75-99)
[2019-10-31] MEDS: THIAMINE 100 MG TAB PO SCH ×2 (07:28→17:12)
[2019-10-31] MEDS: PANTOPRAZOLE 40 MG TABLET PO SCH (07:28)
[2019-10-31] MEDS: MULTIVITAMINS, THERA 1 EACH TAB PO SCH (07:28)
[2019-10-31] MEDS: MORPHINE SULFATE 2 MG/ML SYRINGE IVP PRN ×2 (07:28→11:31)
[2019-10-31] MEDS: FOLIC ACID 1 MG TAB PO SCH (07:28)
[2019-10-31] MEDS: FLUTICASONE 110 MCG INHALER INHALATION SCH ×2 (08:26→19:52)
[2019-10-31 09:10] LABS: ALT 35 U/L (4-49); AST 142 U/L (17-59); African American GFR (CKD) >90 (>60 ml/min/1.73 sqM); Albumin 3.4 g/dL (3.5-5.0); Alkaline Phosphatase 535 U/L (38-126); Anion Gap 11 mmol/L; Blood Urea Nitrogen 5 mg/dL (9-20); Calcium 8.8 mg/dL (8.4-10.2); Carbon Dioxide 27 mmol/L (22-30); Chloride 97 mmol/L (98-107); Glucose 98 mg/dL (74-99); Magnesium 1.7 mg/dL (1.6-2.3); Non-African American GFR(CKD) >90 (>60 ml/min/1.73 sqM); Potassium 2.8 mmol/L (3.5-5.1); Sodium 135 mmol/L (137-145); Total Bilirubin 1.3 mg/dL (0.2-1.3); Total Protein 6.7 g/dL (6.3-8.2)
[2019-10-31] MEDS: POTASSIUM CHLORIDE 20 MEQ in WATER FOR INJECTION 1 100ML.BAG IVPB SCH ×2 (10:13→18:08)
[2019-10-31 11:17] LABS: Glucose,Whole Blood 176 mg/dL (75-99)
--- NOTE | 2019-10-31 13:43 | P.PN ---
Subjective Progress Note Date: 10/31/19 Principal diagnosis: Clavicular fracture, alcohol abuse Patient was seen and examined. No acute events overnight. Patient continues to report 10 out of 10 severity pain in his left shoulder. Alcohol withdrawal symptoms well-controlled. He denies any chest pain, shortness of breath or palpitations. No nausea or vomiting. No fever or chills. He did have an episode of symptomatic hypoglycemia with blood glucose of 48. Objective - Vital Signs Vital signs: Vital Signs Temp 97.4 F L 10/31/19 07:00 Pulse 62 10/31/19 07:00 Resp 18 10/31/19 07:00 BP 115/72 10/31/19 07:00 Pulse Ox 96 10/31/19 07:00 Intake & Output 10/30/19 10/31/19 10/31/19 18:59 06:59 18:59 Output Total 1675 Balance -1675 Weight 60.781 kg Output: Urine 1675 Other: # Voids 3 3 - Exam General: [non toxic], [no distress], [appears at stated age] Derm: [warm], [dry] Head: [atraumatic], [normocephalic], [symmetric] Eyes: [EOMI], [no lid lag], [anicteric sclera] Mouth: [no lip lesion], [mucus membranes moist] Cardiovascular: [S1S2 reg], [no murmur], [positive DP pulse bilateral], Lungs: [CTA bilateral], [no rhonchi, no rales] , [no accessory muscle use] Abdominal: [soft], [ nontender to palpation], [no guarding], [no appreciable organomegaly] Ext: [no gross muscle atrophy], [no edema], [no contractures], [left shoulder bruising with tenderness to palpation over the clavicle] Neuro: [no focal neuro deficits] Psych: [Alert], [oriented], [appropriate affect] - Labs CBC & Chem 7: 10/30/19 07:36 10/31/19 08:28 Labs: Abnormal Lab Results - Last 24 Hours (Table) 10/30/19 10/30/19 10/31/19 Range/Units 16:56 20:58 07:01 Sodium (137-145) mmol/L Potassium (3.5-5.1) mmol/L Chloride (98-107) mmol/L BUN (9-20) mg/dL Creatinine (0.66-1.25) mg/dL POC Glucose (mg/dL) 215 H 180 H 48 L (75-99) mg/dL AST (17-59) U/L Alkaline Phosphatase (38-126) U/L Albumin (3.5-5.0) g/dL 10/31/19 10/31/19 Range/Units 08:28 11:15 Sodium 135 L (137-145) mmol/L Potassium 2.8 L (3.5-5.1) mmol/L Chloride 97 L (98-107) mmol/L BUN 5 L (9-20) mg/dL Creatinine 0.24 L (0.66-1.25) mg/dL POC Glucose (mg/dL) 176 H (75-99) mg/dL AST 142 H (17-59) U/L Alkaline Phosphatase 535 H (38-126) U/L Albumin 3.4 L (3.5-5.0) g/dL Assessment and Plan Assessment: Type 2 diabetes mellitus with hypoglycemia Alcohol withdrawal Hypokalemia Clavicular fracture Hypochloremic hyponatremia Thrombocytopenia Resolved: Lactic acidosis, hypomagnesemia His rjfua-hj-xjzb glucose was 48 this morning. He is on insulin sliding scale and diabetic diet. I will discontinue his Levemir 10 units at bedtime. Regular Accu-Cheks have been ordered along with hypoglycemic precautions. Patient has received 1 mg of Ativan today. His withdrawal symptoms are under control. He will be continued on CIWA protocol and given Ativan as needed. Continue thiamine, folate acid and multivitamin. Discussed alcohol cessation in great length. His potassium of 2.8 will be replaced via protocol. Repeat BMP this afternoon. Orthopedic surgery has evaluated the patient and recommends conservative management. Patient has a low sodium of 135 which is greatly improved from yesterday. This is likely related to alcohol abuse. Initially thought to be hypovolemic but his sodium has worsened with IVF. IVF will be discontinued. Plans to repeat BMP this afternoon. He does have a low platelet count of 86 thought to be related to alcohol abuse. We will continue to monitor this at this time. [Patient admitted for alcohol withdrawal and clavicular fracture. Cleared by orthopedic surgery. Discussed with social work regarding rehab placement. Insurance authorization pending. He is cleared for discharge if potassium normalizes this afternoon.]
[2019-10-31] MEDS: MORPHINE SULFATE 4 MG/ML SYRINGE IVP PRN ×3 (14:59→22:03)
[2019-10-31] MEDS: HYDROcodone/APAP 10-325MG 1 EACH TAB PO PRN ×2 (16:34→23:35)
[2019-10-31 16:38] LABS: Glucose,Whole Blood 229 mg/dL (75-99)
[2019-10-31 19:40] LABS: African American GFR (CKD) >90 (>60 ml/min/1.73 sqM); Anion Gap 9 mmol/L; Blood Urea Nitrogen 7 mg/dL (9-20); Calcium 8.1 mg/dL (8.4-10.2); Carbon Dioxide 23 mmol/L (22-30); Chloride 94 mmol/L (98-107); Glucose 222 mg/dL (74-99); Non-African American GFR(CKD) >90 (>60 ml/min/1.73 sqM); Potassium 3.5 mmol/L (3.5-5.1); Sodium 126 mmol/L (137-145)
[2019-10-31 21:54] LABS: Glucose,Whole Blood 164 mg/dL (75-99)
[2019-10-31] MEDS: ATORVASTATIN 10 MG TAB PO SCH (22:04)
[2019-11-01 02:27] VITALS: TEMP 98.3
[2019-11-01] MEDS: HYDROcodone/APAP 10-325MG 1 EACH TAB PO PRN ×2 (04:38→12:11)
[2019-11-01 07:05] LABS: Glucose,Whole Blood 175 mg/dL (75-99)
[2019-11-01 07:15] VITALS: BP 117/79; PULSE 104; RESP 18
[2019-11-01] MEDS: MULTIVITAMINS, THERA 1 EACH TAB PO SCH (07:18)
[2019-11-01] MEDS: INSULIN ASPART (NovoLOG) 100 UNIT/ML VIAL SQ SCH ×2 (07:18→12:07)
[2019-11-01] MEDS: PANTOPRAZOLE 40 MG TABLET PO SCH (07:18)
[2019-11-01] MEDS: THIAMINE 100 MG TAB PO SCH (07:18)
[2019-11-01] MEDS: FOLIC ACID 1 MG TAB PO SCH (07:18)
[2019-11-01] MEDS: FLUTICASONE 110 MCG INHALER INHALATION SCH (08:38)
[2019-11-01 08:57] LABS: African American GFR (CKD) >90 (>60 ml/min/1.73 sqM); Anion Gap 9 mmol/L; Blood Urea Nitrogen 6 mg/dL (9-20); Carbon Dioxide 22 mmol/L (22-30); Chloride 98 mmol/L (98-107); Glucose 215 mg/dL (74-99); Non-African American GFR(CKD) >90 (>60 ml/min/1.73 sqM); Sodium 129 mmol/L (137-145)
[2019-11-01] MEDS ORDERED: SODIUM CHLORIDE 0.9% 1,000 ML IV SCH (09:00)
[2019-11-01 09:04] LABS: Potassium 3.7 mmol/L (3.5-5.1)
--- NOTE | 2019-11-01 11:29 | P.DS ---
Providers Date of admission: 10/29/19 15:33 Expected date of discharge: 11/01/19 Attending physician: Steve Marcelino MD Consults: 10/27/19 19:22 Consult Physician Urgent Consulting Provider: Jose Lam Consult Reason/Comments: Clavicle fracture Do you want consulting provider notified?: Yes Primary care physician: Stated None Hospital Course: The patient is a 49-year-old male with a PMH of type II DM, EtOH abuse, history of CVA with residual left-sided weakness who was transferred to the ED from [facility] for acute alcohol intoxication with hyperglycemia and a left clavicular fracture. The patient had reported drinking a fifth of vodka every day and had reported falling on his left shoulder 2 days ago. Imaging performed at [facility] had revealed a CT head and cervical spine to be unremarkable with a x-ray showing a left clavicular fracture. The patient was admitted for alcohol intoxication and fracture. Orthopedic surgery eval uated the patient and recommended no surgical intervention at this time with conservative management only. Patient was seen and examined. No acute events overnight. Patient reports better controlled pain in his left upper extremity. Pain is 8 out of 10 in severity with movement. Requesting additional narcotic medication. Patient reports well-controlled symptoms of alcohol withdrawal. He denies any chest pain, shortness breath or palpitations. No nausea or vomiting. No fever or chills. General: [non toxic], [no distress], [appears at stated age] Derm: [warm], [dry] Head: [atraumatic], [normocephalic], [symmetric] Eyes: [EOMI], [no lid lag], [anicteric sclera] Mouth: [no lip lesion], [mucus membranes moist] Cardiovascular: [S1S2 reg], [tachycardic], [positive DP pulse bilateral], Lungs: [CTA bilateral], [no rhonchi, no rales] , [no accessory muscle use] Abdominal: [soft], [ nontender to palpation], [no guarding], [no appreciable organomegaly] Ext: [no gross muscle atrophy], [no edema], [no contractures], [left shoulder bruising with tenderness to palpation over the clavicle] Neuro: [no focal neuro deficits] Psych: [Alert], [oriented], [appropriate affect] Type 2 diabetes mellitus with hypoglycemia now resolved Alcohol withdrawal Clavicular fracture Hypochloremic hyponatremia Thrombocytopenia Resolved: Lactic acidosis, hypomagnesemia, hypokalemia His vexot-jq-[id number] glucose was 215 this morning. He is on insulin sliding scale and diabetic diet. I will discontinue his Levemir 10 units at bedtime. Regular Accu-Cheks have been ordered along with hypoglycemic precautions. He can continue his sliding scale at subacute rehab. Patient has received 1 mg of Ativan yesterday. His withdrawal symptoms are under control. He will be continued on CIWA protocol and given Ativan as needed. Continue thiamine, folate acid and multivitamin. Discussed alcohol cessation in great length. Orthopedic surgery has evaluated the patient and recommends conservative management. Patient has a low sodium of 129 which is slowly improving. This is likely related to alcohol abuse and dehydration. Encourage hydration by mouth. He does have a low platelet count of 86 thought to be related to alcohol abuse. We will continue to monitor this at this time. [Patient admitted for alcohol withdrawal and clavicular fracture. Cleared by orthopedic surgery. DC to rehab today. This complex discharge took 35 minutes to complete.] Patient Condition at Discharge: Stable Plan - Discharge Summary Discharge Rx Participant: Yes New Discharge Prescriptions: New HYDROcodone/APAP 10-325MG [[place] 10-325] 1 each PO Q6H PRN #12 tab PRN Reason: Pain Thiamine [Vitamin B-1] 100 mg PO BID-W/MEALS tab Continue Atorvastatin [Lipitor] 10 mg PO HS metFORMIN HCL [Glucophage] 500 mg PO BID Omeprazole 20 mg PO BID Magnesium 250 mg PO DAILY Ergocalciferol [Vitamin D2 (DRISDOL)] 50,000 unit PO Q7D Multivitamins, Thera [Multivitamin (formulary)] 1 tab PO DAILY Ketorolac [Toradol] 10 mg PO Q6HR PRN PRN Reason: Pain INSULIN LISPRO (humaLOG) [humaLOG] See Protocol SQ DIRECTED Folic Acid 1 mg PO DAILY Beclomethasone Dip 80 Mcg/Puff [Qvar 80 mcg] 1 puff INHALATION RT-BID Discontinued diphenhydrAMINE [Benadryl] 50 mg PO DAILY Insulin Glargine,Hum.rec.anlog [Basaglar Kwikpen U-100] 50 unit SQ BID Cyclobenzaprine [Flexeril] 10 mg PO BID Discharge Medication List Atorvastatin [Lipitor] 10 mg PO HS 10/29/19 [History] Beclomethasone Dip 80 Mcg/Puff [Qvar 80 mcg] 1 puff INHALATION RT-BID 10/29/19 [History] Ergocalciferol [Vitamin D2 (DRISDOL)] 50,000 unit PO Q7D 10/29/19 [History] Folic Acid 1 mg PO DAILY 10/29/19 [History] INSULIN LISPRO (humaLOG) [humaLOG] See Protocol SQ DIRECTED 10/29/19 [History] Ketorolac [Toradol] 10 mg PO Q6HR PRN 10/29/19 [History] Magnesium 250 mg PO DAILY 10/29/19 [History] Multivitamins, Thera [Multivitamin (formulary)] 1 tab PO DAILY 10/29/19 [History] Omeprazole 20 mg PO BID 10/29/19 [History] metFORMIN HCL [Glucophage] 500 mg PO BID 10/29/19 [History] HYDROcodone/APAP 10-325MG [[place] 10-325] 1 each PO Q6H PRN #12 tab 11/01/19 [Rx] Thiamine [Vitamin B-1] 100 mg PO BID-W/MEALS tab 11/01/19 [Rx] Follow up Appointment(s)/Referral(s): Jose Lam DO [Doctor of Osteopathic Medicine] - 11/14/19 3:00 pm None,Stated [Primary Care Provider] - 1-2 days Activity/Diet/Wound Care/Special Instructions: Orthopedic discharge instructions: 1. Utilize arm sling at all times 2. Avoid excess use of left upper extremity 3. Plan [facility] 2 weeks Follow-up PCP within 3 days of discharge. Follow-up with orthopedic surgery within 2 weeks of discharge. Discharge Disposition: TRANSFER TO SNF/ECF
[2019-11-01 11:34] LABS: Glucose,Whole Blood 188 mg/dL (75-99)
--- NOTE | 2019-11-02 11:38 | CDI ---
Documentation Clarification Form Date: 11/02/19 From: Akila Gilbert Phone: If you have a question about this query, please contact Alondra Beck, Pharmaceutical Detailer at [phone] between 8am and 5pm. Admit Date: 10/29/19 Discharge Date:11/01/19 Patient Name: Chiquita Castillo Visit Number: [id number] ATTENTION: The Clinical Documentation Specialists (CDI) and [facility] Coding Staff appreciate your assistance in clarifying documentation. Please respond to the clarification below the line at the bottom and electronically sign. The CDI & [facility] Coding staff will review the response and follow-up if needed. Please note: Queries are made part of the Legal Health Record. If you have any questions, please contact the author of this message via ITS. Dear Dr. Garcia Intoxication and withdrawal is documented throughout the chart. History/Risk Factors: Alcohol abuse, diabetes, hyperglycemia, hyponatremia Clinical Indicators: Elevated blood alcohol, daily alcohol use, mild outstretched hand tremor, some fine tongue fascitulations Labs: Blood alcohol 236, lactic acid 4.2, hypokalemia Treatment: IV Ativan, 3 liter NS bolus then at 125 mls/hr In your professional opinion, can you please clarify if the above clinical indicators and treatment signify any of the following? Alcohol dependence Alcohol abuse Other, please specify Unable to determine alcohol abuse MTDD
== END 2019-11-01 14:53 ==
LOC: EC 17:09 → 4SSUR 19:28 → INTOOBSV 10-29 15:33 → OBSVTOIN 10-29 15:33 → UNDODISIN 11-01 14:56
PROVIDERS: ADMIT Internal Medicine; ATTEND Internal Medicine
DX: S42.032A Displaced fracture of lateral end of left clavicle, initial encounter for closed fracture (principal); F10.239 Alcohol dependence with withdrawal, unspecified; E83.42 Hypomagnesemia; E87.6 Hypokalemia; E11.649 Type 2 diabetes mellitus with hypoglycemia without coma; E11.65 Type 2 diabetes mellitus with hyperglycemia; E86.0 Dehydration; D64.9 Anemia, unspecified; K70.10 Alcoholic hepatitis without ascites; I69.354 Hemiplegia and hemiparesis following cerebral infarction affecting left non-dominant side; F10.229 Alcohol dependence with intoxication, unspecified; D69.6 Thrombocytopenia, unspecified; E87.1 Hypo-osmolality and hyponatremia; E87.2 Acidosis; E87.8 Other disorders of electrolyte and fluid balance, not elsewhere classified; Z11.59 Encounter for screening for other viral diseases; Z88.8 Allergy status to other drugs, medicaments and biological substances; W19.XXXA Unspecified fall, initial encounter; Y90.7 Blood alcohol level of 200-239 mg/100 ml
CPT/HCPCS: 96376 ×4; 96361 ×5; 96365; 96366 ×2; 96367; 96372 ×3; 96375 ×3; 82075; 99285; 36415; 94640 ×4; 97116 ×3; 97163; 97535 ×3; 97167; 80053 ×3; 80048 ×4; 82009; 83605 ×2; 83735 ×3; 85025 ×2; 85027 ×2; 83036; G0378 ×6; L3670; G0480; U0003; J2060 ×3; J2270 ×4; J1644 ×2; J2765; J3411; J3480; J1885 ×5; J3475 ×2; J1170 ×3; 80320; 96374